=== PATIENT | female | born 1945 | race Caucasian/White ===

== ENCOUNTER → 2023-11-06 10:20 | Outpatient (REF) | payer MEDICARE, OTHER, SELFPAY | LOC: WDC 10:20 | PROVIDERS: ATTENDING PHYSICIAN Obstetrics & Gynecology Gynecology; FAMILY PHYSICIAN Family Medicine | DX: N63.10 Unspecified lump in the right breast, unspecified quadrant (principal) | CPT/HCPCS: 76642; 77061; 77065 ==

== ENCOUNTER → 2024-01-21 10:24 | Outpatient (REF) | payer MEDICARE, OTHER, SELFPAY | LOC: RAD 10:24 | PROVIDERS: ATTENDING PHYSICIAN Internal Medicine Critical Care Medicine; FAMILY PHYSICIAN Family Medicine | DX: R91.8 Other nonspecific abnormal finding of lung field (principal) | CPT/HCPCS: 71250 ==

== ENCOUNTER → 2024-03-06 09:13 | Outpatient (REF) | payer MEDICARE, OTHER, SELFPAY ==
[2024-03-06 10:27] LABS: Ionized Calcium 1.22 mMOL/L (1.15-1.33)
[2024-03-06 10:39] LABS: % Basophils 0.6 % (0-2); % Eosinophils 1.5 % (0-6); % Immature Granulocytes 0.3 % (0-0.5); % Monocytes 7.9 % (1.7-9.3); % Neutrophils 57.7 % (42.2-75.2); Absolute Eosinophils 0.1 10^3/uL (0-0.7); Absolute Lymphocytes 1.1 10^3/uL (1.2-3.4); Absolute Monocytes 0.3 10^3/uL (0.1-0.6); Absolute Neutrophils 1.9 10^3/uL (1.4-6.5); Hematocrit 38.5 % (37.0-47.0); Hemoglobin 13.2 g/dL (12.0-16.0); Mean Corp Hgb Conc. 34.3 g/dL (33.0-37.0); Mean Corpuscular Hgb 31.7 pg (27.0-31.0); Mean Corpuscular Volume 92.3 fL (81.0-99.0); Nucleated Red Blood Cells % 0 %; Red Blood Cell Count 4.17 10^6/uL (4.20-5.40); Red Cell Dist. Width 14.3 % (11.5-14.5); White Blood Cell Count 3.3 10^3/uL (4.8-10.8)
[2024-03-06 10:45] LABS: INR 1.09; PT 13.9 Sec (11.4-14.6)
[2024-03-06 11:14] LABS: ALT (SGPT) 55 U/L (0-35); AST (SGOT) 50 U/L (14-36); Albumin 4.3 g/dl (3.5-5.0); Alkaline Phosphatase 163 U/L (38-126); Blood Urea Nitrogen 21 mg/dl (7-17); Calcium 9.8 mg/dl (8.4-10.2); Carbon Dioxide 28 mmol/L (22-30); Chloride 107 mmol/L (98-107); Glucose 81 mg/dl (70-99); HDL Cholesterol 79 mg/dl; LDL Cholesterol, Calculated 103 mg/dl; Potassium 4.4 mmol/L (3.5-5.1); Sodium 143 mmol/L (135-145); Total Bilirubin 0.8 mg/dl (0.2-1.3); Total Cholesterol 202 mg/dl (50-199); Total Protein 7.2 g/dl (6.3-8.2); Triglyceride 102 mg/dl (10-149); Very Low Density Lipoprotein 20 mg/dl (0-30); eGFR > 60.00
[2024-03-06 11:24] LABS: Intact PTH 105.1 pg/ml (13.6-85.8)
[2024-03-06 11:27] LABS: Free T4 1.35 ng/dl (0.78-2.19)
[2024-03-06 11:41] LABS: Mean Platelet Volume 9.9 fL (7.4-10.4); Platelet Count 90 10^3/uL (130-400); TSH 2.27 uIU/ml (0.47-4.68)
[2024-03-06 11:45] LABS: AFP Male/Tumor Marker 3.92 ng/ml
== END ==
LOC: REG 09:13
PROVIDERS: ATTENDING PHYSICIAN Internal Medicine Endocrinology, Diabetes & Metabolism; FAMILY PHYSICIAN Family Medicine; OTHER PHYSICIAN Internal Medicine Transplant Hepatology
DX: M81.0 Age-related osteoporosis without current pathological fracture (principal); E83.52 Hypercalcemia; E03.9 Hypothyroidism, unspecified; K74.60 Unspecified cirrhosis of liver
CPT/HCPCS: 36415; 80053; 80061; 82105; 82330; 83970; 84439; 84443; 85025; 85610

== ENCOUNTER → 2024-03-13 08:42 | Outpatient (REF) | payer MEDICARE, OTHER, SELFPAY | LOC: RAD 08:42 | PROVIDERS: ATTENDING PHYSICIAN Internal Medicine Endocrinology, Diabetes & Metabolism; FAMILY PHYSICIAN Family Medicine | DX: M81.0 Age-related osteoporosis without current pathological fracture (principal) | CPT/HCPCS: 77080; 77081 ==

== ENCOUNTER → 2024-04-17 12:00 | Outpatient (REF) | payer MEDICARE, OTHER, SELFPAY | LOC: WDC 12:00 | PROVIDERS: ATTENDING PHYSICIAN Obstetrics & Gynecology Gynecology; FAMILY PHYSICIAN Family Medicine | DX: Z12.31 Encounter for screening mammogram for malignant neoplasm of breast (principal) | CPT/HCPCS: 77063; 77067 ==

== ENCOUNTER → 2024-08-03 08:30 | Outpatient (REF) | payer MEDICARE, OTHER, SELFPAY | LOC: RAD 08:30 | PROVIDERS: ATTENDING PHYSICIAN Internal Medicine Critical Care Medicine; FAMILY PHYSICIAN Family Medicine | DX: R91.8 Other nonspecific abnormal finding of lung field (principal) | CPT/HCPCS: 71250 ==

== ENCOUNTER → 2025-04-20 09:30 | Outpatient (REF) | payer MEDICARE, OTHER, SELFPAY ==
[2025-04-20 10:26] LABS: ALT (SGPT) 45 U/L (0-35); AST (SGOT) 39 U/L (14-36); Albumin 4.0 g/dl (3.5-5.0); Alkaline Phosphatase 165 U/L (38-126); Blood Urea Nitrogen 21 mg/dl (7-17); Calcium 10.2 mg/dl (8.4-10.2); Carbon Dioxide 32 mmol/L (22-30); Chloride 107 mmol/L (98-107); Glucose 84 mg/dl (70-99); Potassium 4.1 mmol/L (3.5-5.1); Sodium 141 mmol/L (135-145); Total Protein 7.2 g/dl (6.3-8.2); eGFR > 60.00
[2025-04-20 10:42] LABS: Vitamin D, 25-OH*** 51.3 ng/mL (30-80)
[2025-04-20 10:55] LABS: TSH 4.32 uIU/ml (0.47-4.68)
== END ==
LOC: REG 09:30
PROVIDERS: ATTENDING PHYSICIAN Internal Medicine Endocrinology, Diabetes & Metabolism; FAMILY PHYSICIAN Family Medicine; REFERRING PHYSICIAN Internal Medicine Transplant Hepatology
DX: M81.0 Age-related osteoporosis without current pathological fracture (principal); E83.52 Hypercalcemia; E34.9 Endocrine disorder, unspecified; E03.9 Hypothyroidism, unspecified; E55.9 Vitamin D deficiency, unspecified
CPT/HCPCS: 36415; 80053; 82306; 83970; 84443

== ENCOUNTER → 2025-05-21 12:04 | Outpatient (REF) | payer MEDICARE, OTHER, SELFPAY | LOC: WDC 12:04 | PROVIDERS: ATTENDING PHYSICIAN Obstetrics & Gynecology Gynecology; FAMILY PHYSICIAN Family Medicine | DX: Z12.31 Encounter for screening mammogram for malignant neoplasm of breast (principal) | CPT/HCPCS: 77063; 77067 ==

== ENCOUNTER 2025-06-10 06:19 | Day surgery (SDC) | payer MEDICARE, OTHER, SELFPAY ==
[2025-06-10 08:07] VITALS: BMI 20.9
[2025-06-10 08:08] VITALS: BP 152/80; BMI 20.9
[2025-06-10 11:06] VITALS: BP 110/74
[2025-06-10 11:15] VITALS: BP 126/65
[2025-06-10 11:30] VITALS: BP 126/65
== END 2025-06-10 11:12 | disposition home or self-care (01) ==
LOC: SDS 06:19
PROVIDERS: ATTENDING PHYSICIAN Internal Medicine Gastroenterology
DX: Z12.11 Encounter for screening for malignant neoplasm of colon (principal); Z86.0100 Personal history of colon polyps, unspecified; K57.30 Diverticulosis of large intestine without perforation or abscess without bleeding; K64.8 Other hemorrhoids; I85.00 Esophageal varices without bleeding; K22.89 Other specified disease of esophagus; Z13.810 Encounter for screening for upper gastrointestinal disorder; K31.89 Other diseases of stomach and duodenum; D12.3 Benign neoplasm of transverse colon; K63.5 Polyp of colon; K51.40 Inflammatory polyps of colon without complications
CPT/HCPCS: 45385; 45380; 43239; 88305

== ENCOUNTER → 2025-07-08 10:53 | Outpatient (REF) | payer MEDICARE, OTHER, SELFPAY | LOC: RAD 10:53 | PROVIDERS: ATTENDING PHYSICIAN Internal Medicine Gastroenterology; FAMILY PHYSICIAN Family Medicine; REFERRING PHYSICIAN Internal Medicine Transplant Hepatology | DX: D13.1 Benign neoplasm of stomach (principal) | CPT/HCPCS: 74177; Q9967 ==